=== PATIENT | female | born 1985 | race American Indian/Alaskan Native ===

== ENCOUNTER 2020-11-27 01:35 | Emergency (ER) | payer MEDICAID ==
[2020-11-27 02:52] VITALS: BP 144/94
[2020-11-27 03:33] LABS: Basophils % (Auto) 0.1 % (0.0-1.8); Eosinophils % (Auto) 0.1 % (0.0-4.3); Hematocrit 45.7 % (30.3-42.9); Hemoglobin 15.5 gm/dl (10.1-14.3); Lymphocytes # (Auto) 2.1 K/mm3 (1.2-5.4); Mean Corpuscular HGB Conc 34 % (30-34); Mean Corpuscular Volume 89 fl (79-97); Monocytes % (Auto) 11.2 % (0.0-7.3); Platelet Count 246 K/mm3 (140-440); Red Blood Count 5.15 M/mm3 (3.65-5.03)
[2020-11-27 03:46] LABS: Albumin 4.7 g/dL (3.9-5); Calcium 9.8 mg/dL (8.4-10.2)
[2020-11-27] MEDS ORDERED: ONDANSETRON 4 MG/2 ML INJ IV ONE ×2 (04:59→06:37)
[2020-11-27] MEDS ORDERED: SODIUM CHLORIDE 0.9% 1000 ML 1,000 ML IV ONE ×2 (04:59→05:18)
[2020-11-27] MEDS ORDERED: ONDANSETRON 4 MG/2 ML INJ ONE (05:00)
[2020-11-27] MEDS ORDERED: SODIUM CHLORIDE 0.9% 1000 ML 1,000 ML ONE (05:00)
[2020-11-27] MEDS ORDERED: MORPHINE 4 MG/1 ML INJ IV ONE (06:37)
--- NOTE | 2020-11-27 06:41 | Emergency Department Report ---
ED N/V/D HPI - General Chief complaint: Nausea/Vomiting/Diarrhea Stated complaint: VOMITING X3 DAYS PUI?: No Time Seen by Provider: 11/27/20 06:32 Source: patient Mode of arrival: Stretcher Limitations: No Limitations - History of Present Illness Initial comments: Chief complaint: "I am just so dehydrated and hungry. I cannot keep anything down." HPI: This is a 35-year-old female with history of tobacco dependence and mariju harjit use who presents with vomiting constantly for 3 days. She suspect that she may have food poisoning. History is unclear what food item made her sick. She has persistently vomiting for 3 days. She feels as if her stomach is "touching her back". No discrete pain. She denies fever, headache, cough, diarrhea. Patient states that she smokes marijuana "from time to time". MD complaint: nausea, vomiting -: Gradual, days(s) (3 days) Description of Vomiting: food contents Associated Abdominal Pain: Yes Location: diffuse, LUQ Severity: mild Quality: dull Consistency: constant Improves with: none Worsens with: none Context: possible food poisoning Associated Symptoms: denies other symptoms - Related Data Previous Rx's Medication Instructions Recorded Last Taken Type metFORMIN [Glucophage] 500 mg PO BID 90 Days #180 tablet 11/27/20 Unknown Rx Allergies Allergy/AdvReac Type Severity Reaction Status Date / Time No Known Allergies Allergy Unverified 11/27/20 02:46 ED Review of Systems ROS: Stated complaint: VOMITING X3 DAYS Other details as noted in HPI Comment: All other systems reviewed and negative Constitutional: denies: fever, malaise Respiratory: denies: cough, shortness of breath Cardiovascular: denies: chest pain Gastrointestinal: abdominal pain, nausea, vomiting. denies: diarrhea Neurological: denies: headache ED Past Medical Hx - Past Medical History Previous Medical History?: No - Surgical History Past Surgical History?: Yes Additional Surgical History: Left foot - Social History Smoking Status: Current Every Day Smoker Substance Use Type: Alcohol, Marijuana - Medications Home Medications: Home Medications Medication Instructions Recorded Confirmed Last Taken Type metFORMIN [Glucophage] 500 mg PO BID 90 Days #180 tablet 11/27/20 Unknown Rx ED Physical Exam - General Limitations: No Limitations General appearance: alert, in no apparent distress, other (Dry lips dry mouth appears uncomfortable) - Head Head exam: Present: atraumatic, normocephalic - Eye Eye exam: Present: normal appearance - ENT ENT exam: Present: mucous membranes dry - Neck Neck exam: Present: normal inspection, full ROM - Respiratory Respiratory exam: Present: normal lung sounds bilaterally. Absent: respiratory distress, wheezes, rales, rhonchi - Cardiovascular Cardiovascular Exam: Present: normal rhythm, tachycardia, normal heart sounds. Absent: systolic murmur, diastolic murmur, rubs, gallop - GI/Abdominal GI/Abdominal exam: Present: soft, normal bowel sounds. Absent: distended, tenderness, guarding, rebound - Extremities Exam Extremities exam: Present: normal inspection - Neurological Exam Neurological exam: Present: alert, oriented X3 - Psychiatric Psychiatric exam: Present: normal affect, normal mood - Skin Skin exam: Present: warm, dry, intact, normal color. Absent: rash ED Course Vital Signs 11/27/20 02:51 Temperature 97.4 F L Pulse Rate 110 H Respiratory 18 Rate Blood Pressure 144/94 [Left] O2 Sat by Pulse 99 Oximetry ED Medical Decision Making - Lab Data Result diagrams: 11/27/20 03:00 11/27/20 03:00 - Medical Decision Making This is a healthy 35-year-old female who presents with vomiting abdominal pain for 3 days. No fever or leukocytosis or abdominal tenderness to indicate peritonitis. No indication of inflammatory obstructive process. Differential diagnosis includes food poisoning, cannabinoid hyperemesis syndrome, COVID-19 infection. Symptoms improved with IV fluid normal saline 2 L, IV Zofran, IV morphine. Patient did have dehydration on physical exam. Also had obvious indicators of volume contraction with elevated hemoglobin hematocrit, BUN and creatinine hyponatremia hypokalemia. Patient does have elevated glucose. And glucosuria. new onset diabetes. Patient given Metformin prescription and diabetes verbal written education. Critical care attestation.: If time is entered above; I have spent that time in minutes in the direct care of this critically ill patient, excluding procedure time. ED Disposition Clinical Impression: Dehydration, Diabetes mellitus, new onset Disposition: DC-01 TO HOME OR SELFCARE Is pt being admited?: No Does the pt Need Aspirin: No Condition: Stable Instructions: Diabetes Mellitus Type 2 in Adults (ED), Type 2 Diabetes Mellitus, Diagnosis, Adult, Dehydration, Adult, [id number] Prescriptions: metFORMIN [Glucophage] 500 mg PO BID 90 Days #180 tablet Referrals: CARBUCCIA,JACKLYN, MD [Staff Physician] - 3-5 Days
[2020-11-27 06:46] LABS: Bilirubin,Urine NEG (Negative); Blood,Urine NEG (Negative); Color,Urine Yellow (Yellow); Urobilinogen,Urine < 2.0 mg/dL (<2.0)
== END 2020-11-27 12:45 | disposition home or self-care (01) ==
LOC: ED 01:35
DX: E86.0 Dehydration (principal); E11.9 Type 2 diabetes mellitus without complications; F17.200 Nicotine dependence, unspecified, uncomplicated; F12.90 Cannabis use, unspecified, uncomplicated; Z72.89 Other problems related to lifestyle; Z79.84 Long term (current) use of oral hypoglycemic drugs
CPT/HCPCS: 36415; 80053; 81001; 83690; 84703; 85025; 96361; 96374; 96375; 96376; 99284; J2270; J2405; J7030